=== PATIENT | male | born 2000 | race Caucasian/White ===

== ENCOUNTER 2023-12-26 00:18 | Emergency (ER) | payer OTHER ==
--- NOTE | 2023-12-26 00:57 | EDPHYS ---
Physician Documentation [facility] Name: Blayne Buitraog Age: 23 yrs Sex: Male : 2000 Arrival Date: 12/26/2023 Time: 00:18 Bed DX3 Private MD: ED Physician America Chen HPI: 12/25 00:53 This 23 yrs old Male presents to ER via Unassigned with complaints of Redness of Eye - sp3 left. 00:53 23-year-old male with no past medical history presents with left eye redness and sp3 swelling off and on for 1 month. He denies any foreign body currently. He does not work around any foreign body other than dust as per his report. He denies any changes in his vision, pain, headache, swelling, fever, URI symptoms, neck pain, shortness of breath, chest pain, focal neurological deficit, or any other signs or symptoms on ROS at this time.. Historical: - Allergies: 00:55 No Known Allergies; lg3 - Home Meds: 00:55 None [Active]; lg3 - PMHx: 00:55 None; lg3 - PSHx: 00:55 None; lg3 - Immunization history:: Adult Immunizations up to date. - Infectious Disease History:: Denies. - Social history:: Smoking status: Patient denies any tobacco usage or history of. Patient/guardian denies using alcohol, street drugs. ROS: 00:54 Constitutional: Negative for fever, chills, and weight loss, ENT: Negative for injury, sp3 pain, and discharge, Neck: Negative for injury, pain, and swelling, Cardiovascular: Negative for chest pain, palpitations, and edema, Respiratory: Negative for shortness of breath, cough, wheezing, and pleuritic chest pain, Abdomen/GI: Negative for abdominal pain, nausea, vomiting, diarrhea, and constipation, Back: Negative for injury and pain, MS/Extremity: Negative for injury and deformity, Skin: Negative for injury, rash, and discoloration, Neuro: Negative for headache, weakness, numbness, tingling, and seizure, Psych: Negative for depression, anxiety, suicide ideation, homicidal ideation, and hallucinations, Allergy/Immunology: Negative for hives, rash, and allergies, Endocrine: Negative for neck swelling, polydipsia, polyuria, polyphagia, and marked weight changes, Hematologic/Lymphatic: Negative for swollen nodes, abnormal bleeding, and unusual bruising, 00:54 All other systems are negative, Exam: 00:54 Constitutional: This is a well developed, well nourished patient who is awake, alert, sp3 and in no acute distress. Head/Face: Normocephalic, atraumatic. ENT: Nares patent. No nasal discharge, no septal abnormalities noted. External auditory canals are clear. Oropharynx with no redness, swelling, or masses, exudates, or evidence of obstruction, uvula midline. Mucous membranes moist. Neck: Trachea midline, no thyromegaly or masses palpated, and no cervical lymphadenopathy. Supple, full range of motion without nuchal rigidity, or vertebral point tenderness. No Meningismus. Chest/axilla: Normal chest wall appearance and motion. Nontender with no deformity. No lesions are appreciated. Cardiovascular: Regular rate and rhythm with a normal S1 and S2. No gallops, murmurs, or rubs. Normal PMI, no JVD. No pulse deficits. Respiratory: Lungs have equal breath sounds bilaterally, clear to auscultation and percussion. No rales, rhonchi or wheezes noted. No increased work of breathing, no retractions or nasal flaring. Abdomen/GI: Soft, non-tender, with normal bowel sounds. No distension or tympany. No guarding or rebound. No evidence of tenderness throughout. Back: No spinal tenderness. No costovertebral tenderness. Full range of motion. Skin: Warm, dry with normal turgor. Normal color with no rashes, no lesions, and no evidence of cellulitis. MS/ Extremity: Pulses equal, no cyanosis. Neurovascular intact. Full, normal range of motion. Neuro: Awake and alert, GCS 15, oriented to person, place, time, and situation. Cranial nerves II-XII grossly intact. Motor strength 5/5 in all extremities. Sensory grossly intact. Cerebellar exam normal. Normal gait. Psych: Awake, alert, with orientation to person, place and time. Behavior, mood, and affect are within normal limits. 00:54 Eyes: Slightly am not available. Patient has redness and irritation in the eye without any periorbital swelling or erythema. Pupils equal round reactive light. Anterior chambers clean. No hyphema noted.. Vital Signs: 00:54 BP 126 / 74; Pulse 64; Resp 17 S; Temp 98.1(O); Pulse Ox 98% on R/A; Weight 81.19 kg lg3 (R); Height 5 ft. 6 in. (R); 00:54 Body Mass Index 28.89 (81.19 kg, 167.64 cm) lg3 MDM: 00:33 Patient medically screened. sp3 00:54 Data reviewed: vital signs, nurses notes. ED course: Red left eye. Consider sp3 conjunctivitis versus allergic infection versus bacterial infection versus potential low-grade corneal abrasion. I am not suspicious of orbital cellulitis, periorbital cellulitis, glaucoma, globe rupture, retained foreign body, or any other concerning findings. 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 Administered Medications: 01:06 Drug: Maxitrol Ophthalmic Drops 2 drops Ophthalmic in left eye once Route: Ophthalmic; lg3 Site: left eye; 01:06 Follow up: Response: No adverse reaction lg3 Disposition Summary: 12/26/23 00:56 Discharge Ordered Notes: Location: Home sp3 Condition: Stable sp3 Diagnosis - Conjunctivitis, right eye left sp3 Followup: sp3 - With: Private Physician - When: Upon discharge from the Emergency Department - Reason: Continuance of care Discharge Instructions: - Discharge Summary Sheet sp3 - Chemical Conjunctivitis, Adult sp3 Forms: - Medication Reconciliation Form sp3 - Antibiotic Education sp3 - Prescription Opioid Use sp3 - Patient Portal Instructions sp3 - Leadership Thank You Letter sp3 Prescriptions: - Maxitrol 3.5mg/mL-10,000 unit/mL-0.1 % Ophthalmic drops, suspension - instill 2 drop OPHTHALMIC route every 4 hours; 5 milliliter; Refills: 0, sp3 Product Selection Permitted Signatures: Dayanna Keane RN RN lg3 America Chen MD MD sp3
--- NOTE | 2023-12-26 00:57 | ER ---
Nurse's Notes [facility] Name: Blayne Buitrago Age: 23 yrs Sex: Male : 2000 Arrival Date: 12/26/2023 Time: 00:18 Bed DX3 Private MD: Diagnosis: Conjunctivitis, right eye left Presentation: 12/25 00:54 Chief complaint: Patient states: redness and swelling to left eye X1 month. Coronavirus lg3 screen: Client denies travel out of the [place] in the last 14 days. At this time, the client does not indicate any symptoms associated with coronavirus-19. Ebola Screen: No symptoms or risks identified at this time. Initial Sepsis Screen: Does the patient meet any 2 criteria? No. Patient's initial sepsis screen is negative. Does the patient have a suspected source of infection? No. Patient's initial sepsis screen is negative. Risk Assessment: Do you want to hurt yourself or someone else? Patient reports no desire to harm self or others. Onset of symptoms is unknown. 00:54 Method Of Arrival: Ambulatory lg3 00:54 Acuity: KAREN 5 lg3 Triage Assessment: 00:55 General: Appears in no apparent distress. comfortable, Behavior is calm, cooperative. lg3 Pain: Complains of pain in left eye. EENT: Eyes are tearing on left eye Sclera/Cornea are reddened in left eye. Neuro: No deficits noted. [place] Agitation-Sedation Scale (RASS): 0 - Alert and Calm Level of Consciousness is awake, alert, obeys commands, Oriented to person, place, time, situation. Cardiovascular: No deficits noted. Denies chest pain, shortness of breath, Capillary refill < 3 seconds Clubbing of nail beds is absent JVD is absent Patient's skin is warm and dry. Respiratory: No deficits noted. Airway is patent Respiratory effort is even, unlabored, Respiratory pattern is regular, symmetrical. GI: No deficits noted. No signs and/or symptoms were reported involving the gastrointestinal system. : No deficits noted. No signs and/or symptoms were reported regarding the genitourinary system. Derm: No deficits noted. No signs and/or symptoms reported regarding the dermatologic system. Skin is intact, is healthy with good turgor, Skin is dry, Skin is normal, Skin temperature is warm. Musculoskeletal: No deficits noted. No signs and/or symptoms reported regarding the musculoskeletal system. Circulation, motion, and sensation intact. Range of motion: intact in all extremities. Historical: - Allergies: 00:55 No Known Allergies; lg3 - Home Meds: 00:55 None [Active]; lg3 - PMHx: 00:55 None; lg3 - PSHx: 00:55 None; lg3 - Immunization history:: Adult Immunizations up to date. - Infectious Disease History:: Denies. - Social history:: Smoking status: Patient denies any tobacco usage or history of. Patient/guardian denies using alcohol, street drugs. Screenin:56 [facility] ED Fall Risk Assessment (Adult) History of falling in the last 3 months, lg3 including since admission No falls in past 3 months (0 pts) Confusion or Disorientation No (0 pts) Intoxicated or Sedated No (0 pts) Impaired Gait No (0 pts) Mobility Assist Device Used No (0 pt) Altered Elimination No (0 pt) Score/Fall Risk Level 0 - 2 = Low Risk Oriented to surroundings, Maintained a safe environment, Educated pt \T\ family on fall prevention, incl call for assistance when getting out of bed, Assessed \T\ reinforced patient's understanding of fall precautions. Abuse screen: Denies threats or abuse. Denies injuries from another. Nutritional screening: No deficits noted. Tuberculosis screening: No symptoms or risk factors identified. Assessment: 00:56 General: see triage assessment. lg3 Vital Signs: 00:54 BP 126 / 74; Pulse 64; Resp 17 S; Temp 98.1(O); Pulse Ox 98% on R/A; Weight 81.19 kg lg3 (R); Height 5 ft. 6 in. (R); 00:54 Body Mass Index 28.89 (81.19 kg, 167.64 cm) lg3 ED Course: 00:20 Patient arrived in ED. ra3 00:33 America Chen MD is Attending Physician. sp3 00:54 Dayanna Keane RN is Primary Nurse. lg3 00:55 Triage completed. lg3 00:55 Arm band placed on right wrist. lg3 00:56 Patient has correct armband on for positive identification. lg3 00:56 No provider procedures requiring assistance completed. Patient did not have IV access lg3 during this emergency room visit. Administered Medications: 01:06 Drug: Maxitrol Ophthalmic Drops 2 drops Ophthalmic in left eye once Route: Ophthalmic; lg3 Site: left eye; :06 Follow up: Response: No adverse reaction lg3 Medication: 00:56 VIS not applicable for this client. lg3 Outcome: 00:56 Discharge ordered by . sp3 01:06 Discharged to home ambulatory, lg3 01:06 Condition: stable 01:06 Discharge instructions given to patient, Instructed on discharge instructions, follow up and referral plans. medication usage, Demonstrated understanding of instructions, follow-up care, medications, Prescriptions given X 1, 01:06 Patient left the ED. lg3 Signatures: Dayanna Keane RN RN lg3 America Chen MD MD sp3 Nata Mann ra3
[2023-12-26] MEDS ORDERED: NEO/POLY/DEX OPTH 5 ML BOT ONE (00:59)
[2023-12-26 13:50] VITALS: BP 126/74; TEMP 98.1; O2SAT 98
== END 2023-12-26 01:06 | disposition home or self-care (01) ==
LOC: ER 00:18
DX: H10.31 Unspecified acute conjunctivitis, right eye (principal)
CPT/HCPCS: 99283

== ENCOUNTER 2024-07-09 18:22 | Emergency (ER) | payer OTHER ==
--- NOTE | 2024-07-09 19:19 | ER ---
Nurse's Notes [facility] Name: Blayne Buitrago Age: 24 yrs Sex: Male : 2000 Arrival Date: 07/09/2024 Time: 18:22 Bed IW2 Private MD: Diagnosis: Otitis media, unspecified, left ear Presentation: 07/09 18:32 Chief complaint: Patient states: STATES HAS LEFT EAR PAIN RADIATING DOWN FACE STARTED db TODAY. STATES FEELS LIKE TONGUE IS SWELLING. TRIED OTC MEDICATIONS TODAY BUT PAIN IS GRADUALLY GETTING WORSE. PAIN STARTED TODAY AT 1100. Coronavirus screen: Client denies travel out of the [place] in the last 14 days. At this time, the client does not indicate any symptoms associated with coronavirus-19. Ebola Screen: Patient negative for fever greater than or equal to 101.5 degrees Fahrenheit, and additional compatible Ebola Virus Disease symptoms Patient denies exposure to infectious person. Patient denies travel to an Ebola-affected area in the 21 days before illness onset. No symptoms or risks identified at this time. Initial Sepsis Screen: Does the patient meet any 2 criteria? No. Patient's initial sepsis screen is negative. Does the patient have a suspected source of infection? No. Patient's initial sepsis screen is negative. Risk Assessment: Do you want to hurt yourself or someone else? Patient reports no desire to harm self or others. Onset of symptoms was July 09, 2024 at 11:00. 18:32 Method Of Arrival: Ambulatory db 18:32 Acuity: KAREN 4 db Triage Assessment: 18:34 General: Appears in no apparent distress. comfortable, Behavior is calm, cooperative. db Pain: Complains of pain in left ear. EENT:. Historical: - Allergies: 18:34 No Known Allergies; db - PMHx: 18:34 ADHD; db - Immunization history:: Adult Immunizations unknown. - Infectious Disease History:: Denies. - Social history:: Smoking status: Reported history of juuling and/or vaping. Screenin:27 [facility] ED Fall Risk Assessment (Adult) History of falling in the last 3 months, cp4 including since admission No falls in past 3 months (0 pts) Confusion or Disorientation No (0 pts) Intoxicated or Sedated No (0 pts) Impaired Gait No (0 pts) Mobility Assist Device Used No (0 pt) Altered Elimination No (0 pt) Score/Fall Risk Level 0 - 2 = Low Risk Oriented to surroundings, Maintained a safe environment, Assessed \T\ reinforced patient's understanding of fall precautions, Hourly rounding (assess needs \T\ fall precautionary measures) done. Abuse screen: Denies threats or abuse. Denies injuries from another. Nutritional screening: No deficits noted. Tuberculosis screening: No symptoms or risk factors identified. Assessment: 19:27 General: Appears in no apparent distress. uncomfortable, Behavior is calm, cooperative, cp4 appropriate for age. Pain: Complains of pain in left ear Pain does not radiate. Pain currently is 8 out of 10 on a pain scale. Neuro: Level of Consciousness is awake, alert, obeys commands, Oriented to person, place, time, situation. Cardiovascular: Patient's skin is warm and dry. Respiratory: Airway is patent Respiratory effort is even, unlabored. GI: No signs and/or symptoms were reported involving the gastrointestinal system. : No signs and/or symptoms were reported regarding the genitourinary system. EENT: Reports pain in left ear. Derm: No signs and/or symptoms reported regarding the dermatologic system. Musculoskeletal: No signs and/or symptoms reported regarding the musculoskeletal system. Vital Signs: 18:32 BP 158 / 81; Pulse 83; Resp 16; Temp 98.7; Pulse Ox 99% ; Weight 88.45 kg; db ED Course: 18:25 Patient arrived in ED. im 18:28 Ankita Dixon PA-C is PHCP. sb4 18:28 Tex Kowalski MD is Attending Physician. sb4 18:34 Triage completed. db 18:34 Arm band placed on right wrist. Patient placed. db 19:27 Dominga Vidal is Primary Nurse. cp4 19:27 Patient has correct armband on for positive identification. Provided Education on: ear cp4 infection. 19:27 No provider procedures requiring assistance completed. Patient did not have IV access cp4 during this emergency room visit. Administered Medications: 19:27 Drug: Amoxicillin-Clavulanate PO 875 mg PO once Route: PO; cp4 19:30 Follow up: Response: No adverse reaction cp4 19:27 Drug: Hydrocodone-Acetaminophen PO (7.5 mg-325 mg) 1 tabs PO once Route: PO; cp4 19:30 Follow up: Response: No adverse reaction cp4 Medication: 19:27 VIS not applicable for this client. cp4 Outcome: 19:18 Discharge ordered by MD. sb4 19:27 Discharged to home ambulatory, cp4 19:27 Condition: stable 19:27 Discharge instructions given to patient, family, Instructed on discharge instructions, follow up and referral plans. medication usage, Demonstrated understanding of instructions, follow-up care, medications, Prescriptions given X 1, 19:29 Patient left the ED. cp4 Signatures: Dionna Ta RN RN Ankita Durham, PA-C PA-C sbKendy Rodrigez Christina cp4 Corrections: (The following items were deleted from the chart) 18:34 18:34 PMHx: None; cam levy
--- NOTE | 2024-07-09 19:19 | EDPHYS ---
Physician Documentation [facility] Name: Blayne Buitrago Age: 24 yrs Sex: Male : 2000 Arrival Date: 07/09/2024 Time: 18:22 Bed IW2 Private MD: ED Physician Tex Kowalski HPI: 07/10 00:14 This 24 yrs old Male presents to ER via Ambulatory with complaints of Ear Pain. sb4 00:14 The patient presents with pain, that is acute. The complaints affect the left ear. sb4 Onset: The symptoms/episode began/occurred this morning. Modifying factors: The symptoms are alleviated by otc drops. The patient has not experienced similar symptoms in the past. The patient has not recently seen a physician. Historical: - Allergies: 07/09 18:34 No Known Allergies; db - PMHx: 18:34 ADHD; db - Immunization history:: Adult Immunizations unknown. - Infectious Disease History:: Denies. - Social history:: Smoking status: Reported history of juuling and/or vaping. ROS: 07/10 00:14 Constitutional: Negative for fever, chills, and weight loss, sb4 ENT: Positive for ear pain, All other systems are negative, Exam: 00:14 Constitutional: This is a well developed, well nourished patient who is awake, alert, sb4 and in no acute distress. Head/Face: Normocephalic, atraumatic. Eyes: Extra-ocular motions intact. Periorbital areas with no swelling, redness, or edema. Respiratory: No increased work of breathing, no retractions or nasal flaring. Skin: Warm, dry with normal turgor. Normal color with no rashes, no lesions, and no evidence of cellulitis. 00:14 ENT: Ear canal(s): erythema, swelling, of the left canal, TM's: bulging, on the left, erythema, Examination of the other ear shows no obvious abnormality, Vital Signs: 07/09 18:32 BP 158 / 81; Pulse 83; Resp 16; Temp 98.7; Pulse Ox 99% ; Weight 88.45 kg; db MDM: 18:30 Medical Screening Exam initiated sb4 07/10 00:15 Data reviewed: vital signs, nurses notes, and as a result, I will discharge patient. sb4 Counseling: I had a detailed discussion with the patient and/or guardian regarding the historical points, exam findings, and any diagnostic results supporting the discharge/admit diagnosis, the need for outpatient follow up, for definitive care, to return to the emergency department if symptoms worsen or persist or if there are any questions or concerns that arise at home. Administered Medications: 07/09 19:27 Drug: Amoxicillin-Clavulanate PO 875 mg PO once Route: PO; cp4 19:30 Follow up: Response: No adverse reaction cp4 19:27 Drug: Hydrocodone-Acetaminophen PO (7.5 mg-325 mg) 1 tabs PO once Route: PO; cp4 19:30 Follow up: Response: No adverse reaction cp4 Disposition Summary: 07/09/24 19:18 Discharge Ordered Notes: Location: Home sb4 Problem: new sb4 Symptoms: are unchanged sb4 Condition: Stable sb4 Diagnosis - Otitis media, unspecified, left ear sb4 Followup: sb4 - With: Private Physician - When: 1 week - Reason: Recheck today's complaints, Re-evaluation by your physician Discharge Instructions: - Discharge Summary Sheet sb4 - Otitis Media, Adult sb4 Forms: - Antibiotic Education sb4 - Patient Portal Instructions sb4 - Leadership Thank You Letter sb4 Prescriptions: - Amoxicillin 875 mg Oral Tablet - take 1 tablet ORAL route every 12 hours for 10 days; 20 tablet; Refills: 0, sb4 Product Selection Permitted Signatures: Dionna Ta, RN RN Ankita Durham PA-C PA-C sb4 Dominga Vidal cp4 Corrections: (The following items were deleted from the chart) 18:34 18:34 PMHx: None; cam levy
[2024-07-09] MEDS ORDERED: HYDROCODONE/APAP 7.5/325 MG TAB ONE (19:25)
[2024-07-09] MEDS ORDERED: AMOX/K CLAV 875 MG TAB ONE (19:25)
[2024-07-09 19:34] VITALS: BP 158/81; TEMP 98.7; O2SAT 99
== END 2024-07-09 19:29 | disposition home or self-care (01) ==
LOC: ER 18:22
DX: H66.92 Otitis media, unspecified, left ear (principal)